=== PATIENT | female | born 1965 | race Caucasian/White ===

== ENCOUNTER 2017-04-05 11:46 | Inpatient (IN) | payer MEDICAID ==
[~2017-04-05] VITALS: Ht 162.6 cm; Wt 80.7 kg
[2017-04-05] MEDS ORDERED: SODIUM CHLORIDE 0.9% 1,000 ML IV ONE (11:54)
[2017-04-05 12:40] LABS: BASOPHILS % 1.3 % (0.0-2.0); EOSINOPHILS % 4.6 % (0.0-5.0); MEAN CORPUSCULAR HEMOGLOBIN 27.7 pg (28.0-32.0); MEAN PLATELET VOLUME 7.9 fl (7.4-10.4); MONOCYTES % 5.7 % (2.0-8.0); NEUTROPHILS % 65.4 % (40.0-76.0); PLATELET 337 x1000/uL (130-400); RED BLOOD CELL COUNT 2.28 mill/uL (4.2-5.4); RED CELL DISTRIBUTION WIDTH 16.7 % (11.6-14.6)
[2017-04-05 12:41] LABS: PARTIAL THROMBOPLASTIN TIME 24.1 sec (23.4-31.0); PROTHROMBIN TIME 10.5 sec (9.4-11.6)
[2017-04-05 12:44] LABS: HEMATOCRIT. 19.4 % (36.0-48.0); HEMOGLOBIN. 6.3 g/dL (12.0-16.0)
[2017-04-05] MEDS ORDERED: INSULIN REGULAR (HUMULIN R) 300UNITS/3ML IV ONE (15:45)
[2017-04-05 19:29] VITALS: BP 130/67
[2017-04-05 20:00] VITALS: BP 142/76
[2017-04-05] MEDS ORDERED: ONDANSETRON HCL 4MG/2ML VIAL IV PRN (21:15)
[2017-04-05] MEDS ORDERED: LORAZEPAM 0.5MG TABLET PO PRN (21:15)
[2017-04-05] MEDS ORDERED: DIPHENHYDRAMINE 50MG/ML VIAL IV PRN (21:15)
[2017-04-05] MEDS ORDERED: DOCUSATE SODIUM 100MG CAPSULE PO PRN (21:15)
[2017-04-05] MEDS ORDERED: ACETAMINOPHEN 650MG/20.3ML UDC GT PRN (21:15)
[2017-04-05] MEDS ORDERED: METF10002 PO (21:23)
[2017-04-05] MEDS ORDERED: SITA100T11 PO (21:25)
[2017-04-05] MEDS ORDERED: FERR-71 PO (21:28)
[2017-04-05] MEDS ORDERED: ATEN-42 PO (21:30)
[2017-04-05] MEDS ORDERED: INSU100I24 SQ ×2 (21:38)
[2017-04-05] MEDS ORDERED: INSU100V3 SUBCUT (21:40)
[2017-04-06] VITALS: BP 148/70
[2017-04-06] MEDS ORDERED: DEXTROSE 50% WATER 50ML SYRINGE IV PRN
[2017-04-06] MEDS: SODIUM CHLORIDE 0.9% 1,000 ML IV SCH ×3 (02:21→23:15)
[2017-04-06 04:00] VITALS: BP 140/58
[2017-04-06] MEDS: BLOOD SUGAR DIAGNOSTIC STRIP TEST SCH ×4 (06:38→21:13)
[2017-04-06] MEDS: INSULIN LISPRO 100 UNITS/ML SUBCUT SCH ×4 (06:47→21:00)
[2017-04-06 08:00] VITALS: BP 135/66
[2017-04-06] MEDS ORDERED: INSULIN REGULAR (HUMULIN R) 300UNITS/3ML SUBCUT SCH (09:00)
[2017-04-06] MEDS ORDERED: MEDICATION NOT ON FORMULARY EA (Metformin Hcl 1 TAB) PO SCH (09:00)
[2017-04-06] MEDS ORDERED: MEDICATION NOT ON FORMULARY EA (Sitagliptin Phosphate (Januvia) 1 TAB) PO SCH (09:00)
[2017-04-06] MEDS: METFORMIN HCL 500MG TABLET PO SCH ×2 (09:07→18:09)
[2017-04-06] MEDS: LINAGLIPTIN 5MG TABLET PO SCH (09:07)
[2017-04-06] MEDS: ATENOLOL 25MG TABLET PO SCH (09:08)
[2017-04-06] MEDS: FERROUS SULFATE 325MG TABLET PO SCH ×2 (09:08→18:09)
[2017-04-06] MEDS ORDERED: INSULIN GLARGINE UD 100 UNITS/ML SYR SUBCUT SCH (10:00)
[2017-04-06] MEDS ORDERED: INSULIN DETEMIR UD 100 UNITS/ML SYR SUBCUT SCH (10:00)
[2017-04-06] MEDS ORDERED: INFLUENZA VIRUS VACCINE 0.5ML SYR IM ONE (12:00)
[2017-04-06 13:10] VITALS: BP 134/78
[2017-04-06 17:05] VITALS: BP 143/72
[2017-04-06 20:00] VITALS: BP 150/70
[2017-04-06 20:40] LABS: BASOPHILS % 1.3 % (0.0-2.0); EOSINOPHILS % 5.3 % (0.0-5.0); HEMATOCRIT. 22.4 % (36.0-48.0); HEMOGLOBIN. 7.4 g/dL (12.0-16.0); LYMPHOCYTES % 32.6 % (20.0-50.0); MEAN CORPUSCULAR HEMOGLOBIN 28.8 pg (28.0-32.0); MEAN CORPUSCULAR VOLUME 86.7 fL (81.0-99.0); MEAN PLATELET VOLUME 7.6 fl (7.4-10.4); MONOCYTES % 7.8 % (2.0-8.0); PLATELET 282 x1000/uL (130-400); RED BLOOD CELL COUNT 2.58 mill/uL (4.2-5.4); RED CELL DISTRIBUTION WIDTH 16.2 % (11.6-14.6)
[2017-04-06] MEDS: INSULIN DETEMIR UD 100 UNITS/ML SYR SUBCUT SCH (21:35)
[2017-04-07] VITALS: BP 140/71
[2017-04-07] MEDS: GUAIFENESIN 200MG/10ML SUGAR FREE UDC PO PRN ×2 (01:40→21:45)
[2017-04-07 04:00] VITALS: BP 135/71
[2017-04-07] MEDS: INSULIN LISPRO 100 UNITS/ML SUBCUT SCH ×6 (06:45→21:42)
[2017-04-07] MEDS: BLOOD SUGAR DIAGNOSTIC STRIP TEST SCH ×4 (06:45→21:08)
[2017-04-07 08:00] VITALS: BP 139/53
[2017-04-07] MEDS: SODIUM CHLORIDE 0.9% 1,000 ML IV SCH ×2 (08:04→16:36)
[2017-04-07] MEDS: METFORMIN HCL 500MG TABLET PO SCH ×2 (08:10→17:47)
[2017-04-07] MEDS: ATENOLOL 25MG TABLET PO SCH (08:10)
[2017-04-07] MEDS: LINAGLIPTIN 5MG TABLET PO SCH (08:10)
[2017-04-07] MEDS: FERROUS SULFATE 325MG TABLET PO SCH ×2 (08:10→17:47)
[2017-04-07] MEDS: AMLODIPINE 5MG TABLET PO SCH (11:04)
[2017-04-07] MEDS: INSULIN DETEMIR UD 100 UNITS/ML SYR SUBCUT SCH ×2 (11:16→21:43)
[2017-04-07 16:00] VITALS: BP 140/68
[2017-04-07 20:00] VITALS: BP 140/57
[2017-04-08] VITALS: BP 149/56
[2017-04-08] MEDS: SODIUM CHLORIDE 0.9% 1,000 ML IV SCH ×2 (00:21→14:36)
[2017-04-08 08:00] VITALS: BP 134/74
[2017-04-08] MEDS ORDERED: INSULIN DETEMIR UD 100 UNITS/ML SYR SUBCUT SCH (10:00)
[2017-04-08] MEDS: INSULIN DETEMIR UD 100 UNITS/ML SYR SUBCUT SCH ×2 (11:12→21:56)
[2017-04-08 12:00] VITALS: BP 150/77
[2017-04-08] MEDS: BLOOD SUGAR DIAGNOSTIC STRIP TEST SCH ×3 (12:21→21:36)
[2017-04-08] MEDS: INSULIN LISPRO 100 UNITS/ML SUBCUT SCH ×5 (13:09→21:00)
[2017-04-08 13:19] LABS: BASOPHILS % 1.1 % (0.0-2.0); EOSINOPHILS % 5.8 % (0.0-5.0); HEMATOCRIT. 21.3 % (36.0-48.0); HEMOGLOBIN. 7.2 g/dL (12.0-16.0); LYMPHOCYTES % 28.4 % (20.0-50.0); MEAN CORPUSCULAR HEMOGLOBIN 30.3 pg (28.0-32.0); MEAN CORPUSCULAR VOLUME 89.8 fL (81.0-99.0); MEAN PLATELET VOLUME 7.9 fl (7.4-10.4); MONOCYTES % 6.1 % (2.0-8.0); NEUTROPHILS % 58.6 % (40.0-76.0); PLATELET 306 x1000/uL (130-400); RED BLOOD CELL COUNT 2.37 mill/uL (4.2-5.4); RED CELL DISTRIBUTION WIDTH 16.7 % (11.6-14.6)
[2017-04-08 13:30] LABS: CARBON DIOXIDE 22 mEq/L (21-32); CHLORIDE 111 mEq/L (98-107)
[2017-04-08 16:17] VITALS: BP 151/74
[2017-04-08] MEDS: METFORMIN HCL 500MG TABLET PO SCH ×2 (17:15→17:54)
[2017-04-08] MEDS: FERROUS SULFATE 325MG TABLET PO SCH (17:54)
[2017-04-08 20:00] VITALS: BP 152/69
[2017-04-09] VITALS (11 sets, daily range): BP systolic 124–154; BP diastolic 55–74
[2017-04-09] MEDS: SODIUM CHLORIDE 0.9% 1,000 ML IV SCH ×2 (00:48→10:43)
[2017-04-09] MEDS: BLOOD SUGAR DIAGNOSTIC STRIP TEST SCH ×4 (06:52→20:26)
[2017-04-09 07:08] LABS: BASOPHILS % 0.9 % (0.0-2.0); EOSINOPHILS % 5.7 % (0.0-5.0); LYMPHOCYTES % 31.8 % (20.0-50.0); MEAN CORPUSCULAR HEMOGLOBIN 29.9 pg (28.0-32.0); MEAN CORPUSCULAR VOLUME 89.3 fL (81.0-99.0); MEAN PLATELET VOLUME 7.9 fl (7.4-10.4); MONOCYTES % 7.3 % (2.0-8.0); NEUTROPHILS % 54.3 % (40.0-76.0); PLATELET 309 x1000/uL (130-400); RED BLOOD CELL COUNT 2.21 mill/uL (4.2-5.4); RED CELL DISTRIBUTION WIDTH 17.3 % (11.6-14.6)
[2017-04-09] MEDS: INSULIN LISPRO 100 UNITS/ML SUBCUT SCH ×7 (07:08→21:20)
[2017-04-09 07:20] LABS: HEMATOCRIT. 19.7 % (36.0-48.0); HEMOGLOBIN. 6.6 g/dL (12.0-16.0)
[2017-04-09] MEDS: ATENOLOL 25MG TABLET PO SCH ×2 (09:36→09:42)
[2017-04-09] MEDS: LINAGLIPTIN 5MG TABLET PO SCH ×2 (09:37→09:45)
[2017-04-09] MEDS: METFORMIN HCL 500MG TABLET PO SCH ×2 (09:37→17:15)
[2017-04-09] MEDS: AMLODIPINE 5MG TABLET PO SCH ×2 (09:37→09:41)
[2017-04-09] MEDS: FERROUS SULFATE 325MG TABLET PO SCH ×2 (09:38→17:00)
[2017-04-09] MEDS: INSULIN DETEMIR UD 100 UNITS/ML SYR SUBCUT SCH ×2 (10:41→21:19)
[2017-04-09 11:04] LABS: BASOPHILS % 1.2 % (0.0-2.0); EOSINOPHILS % 6.2 % (0.0-5.0); HEMATOCRIT. 21.2 % (36.0-48.0); HEMOGLOBIN. 7.1 g/dL (12.0-16.0); LYMPHOCYTES % 28.4 % (20.0-50.0); MEAN CORPUSCULAR HEMOGLOBIN 29.1 pg (28.0-32.0); MEAN CORPUSCULAR VOLUME 87.5 fL (81.0-99.0); MEAN PLATELET VOLUME 7.5 fl (7.4-10.4); MONOCYTES % 8.4 % (2.0-8.0); NEUTROPHILS % 55.8 % (40.0-76.0); PLATELET 333 x1000/uL (130-400); RED BLOOD CELL COUNT 2.43 mill/uL (4.2-5.4); RED CELL DISTRIBUTION WIDTH 17.2 % (11.6-14.6)
[2017-04-09 11:35] LABS: CARBON DIOXIDE 26 mEq/L (21-32); CHLORIDE 109 mEq/L (98-107)
[2017-04-09] MEDS ORDERED: FENTANYL CITRATE/PF 50MCG/ML 2ML VIAL ONE (15:26)
[2017-04-09 16:37] LABS: HEMATOCRIT 24.8 % (36.0-48.0); HEMOGLOBIN 8.1 g/dL (12.0-16.0)
[2017-04-09] MEDS ORDERED: CEFAZOLIN SODIUM 1000MG/VIAL ONE (17:48)
[2017-04-09] MEDS ORDERED: PROPOFOL 200MG/20ML VIAL IV ONE (17:48)
[2017-04-09] MEDS ORDERED: FENTANYL CITRATE/PF 50MCG/ML 2ML VIAL IV PRN (18:00)
[2017-04-09] MEDS ORDERED: ONDANSETRON HCL 4MG/2ML VIAL IV PRN (18:00)
[2017-04-09] MEDS ORDERED: HYDROMORPHONE HCL/PF 2MG/ML CPJ IV PRN (18:00)
[2017-04-10] MEDS: GUAIFENESIN 200MG/10ML SUGAR FREE UDC PO PRN (00:45)
[2017-04-10 03:58] VITALS: BP 115/73
[2017-04-10] MEDS: SODIUM CHLORIDE 0.9% 1,000 ML IV SCH ×2 (06:03→12:56)
[2017-04-10] MEDS: INSULIN LISPRO 100 UNITS/ML SUBCUT SCH ×4 (06:09→12:02)
[2017-04-10] MEDS: BLOOD SUGAR DIAGNOSTIC STRIP TEST SCH ×2 (06:09→11:53)
[2017-04-10 08:00] VITALS: BP_SYST 148; BP_DIAS 72; BP_DIAS 76
[2017-04-10] MEDS: METFORMIN HCL 500MG TABLET PO SCH (08:12)
[2017-04-10] MEDS: FERROUS SULFATE 325MG TABLET PO SCH (08:12)
[2017-04-10] MEDS: LINAGLIPTIN 5MG TABLET PO SCH (08:13)
[2017-04-10] MEDS: AMLODIPINE 5MG TABLET PO SCH (08:15)
[2017-04-10] MEDS: ATENOLOL 25MG TABLET PO SCH (08:16)
[2017-04-10] MEDS: INSULIN DETEMIR UD 100 UNITS/ML SYR SUBCUT SCH (09:57)
[2017-04-10 12:00] VITALS: BP 135/63
[2017-04-10 16:00] VITALS: BP 135/70
[2017-04-10 16:07] VITALS: BP 135/70
== END 2017-04-10 17:00 | disposition home or self-care (01) | DRG 517 ==
LOC: ER 11:46 → 5WST 14:02 → EDBEDREQ 14:06 → EDBEDREQTM 14:06 → ENRESERV 16:56
PROVIDERS: ADMIT Obstetrics & Gynecology; ATTEND Obstetrics & Gynecology
PROC: 30233N1 Transfusion of Nonautologous Red Blood Cells into Peripheral Vein, Percutaneous Approach (ICD-10-PCS; 2017-04-05)
PROC: 0UDB7ZZ Extraction of Endometrium, Via Natural or Artificial Opening (ICD-10-PCS; principal; 2017-04-09 16:00)
DX: D25.9 Leiomyoma of uterus, unspecified (principal); E43 Unspecified severe protein-calorie malnutrition; E10.65 Type 1 diabetes mellitus with hyperglycemia; I10 Essential (primary) hypertension; N93.9 Abnormal uterine and vaginal bleeding, unspecified; E66.3 Overweight; M19.90 Unspecified osteoarthritis, unspecified site; C50.911 Malignant neoplasm of unspecified site of right female breast; N95.0 Postmenopausal bleeding; Z79.84 Long term (current) use of oral hypoglycemic drugs; Z88.8 Allergy status to other drugs, medicaments and biological substances; Z68.30 Body mass index [BMI] 30.0-30.9, adult
CPT/HCPCS: 36415; 36430; 76856; 80048; 80053; 82962; 84702; 85014; 85018; 85025; 85610; 85730; 86850; 86900; 86920; 88305; 90686; 93005; 96361; 96374; 99291; J0690; J1815; J2704; J3010; J7030; J7050; P9016